=== PATIENT | male | born 1970 | race Caucasian/White ===

== ENCOUNTER 2021-03-09 09:21 | Emergency (ER) | payer BC ==
[2021-03-09 10:19] LABS: HEMOGLOBIN 17.1 gm/dl (14.0-17.5); RED BLOOD COUNT 5.42 M/UL (4.20-5.50); WHITE BLOOD COUNT 5.8 K/UL (4.5-11.0)
[2021-03-09 11:00] LABS: BUN/CREATININE RATIO 9 (0-10)
[2021-03-09] MEDS ORDERED: POTASSIUM CHLO10 MEQ PO (15:07)
== END 2021-03-09 15:36 | disposition home or self-care (01) ==
LOC: ER1 09:21
PROVIDERS: Student in an Organized Health Care Education/Training Program
DX: R55 Syncope and collapse (principal); K21.9 Gastro-esophageal reflux disease without esophagitis; I10 Essential (primary) hypertension; Z79.82 Long term (current) use of aspirin; Z79.899 Other long term (current) drug therapy
CPT/HCPCS: 80053; 81001; 82550; 82553; 83605; 83874; 84484; 85025; 93005; 99284; J7120

== ENCOUNTER 2021-12-21 17:36 | Emergency (ER) | payer BC ==
[~2021-12-21 17:36] MED LIST: POTASSIUM CHLO10 MEQ PO
[2021-12-21 19:34] LABS: HEMOGLOBIN 17.1 gm/dl (14.0-17.5); RED BLOOD COUNT 5.48 M/UL (4.20-5.50)
== END 2021-12-22 01:08 | disposition home or self-care (01) ==
LOC: ER1 17:36
PROVIDERS: Emergency Medicine
DX: R07.89 Other chest pain (principal); R10.13 Epigastric pain; I10 Essential (primary) hypertension; Z20.822 Contact with and (suspected) exposure to COVID-19
CPT/HCPCS: 71045; 80053; 81001; 82550; 82553; 83690; 83735; 83880; 84100; 84484; 85025; 85610; 85730; 93005; 99285; U0002